=== PATIENT | female | born 1945 | race Caucasian/White ===

== ENCOUNTER 2016-08-12 14:58 | Emergency (ER) | payer MEDICARE, BC ==
[~2016-08-12] VITALS: Ht 152.4 cm; Wt 77.3 kg
[~2016-08-12 14:58] MED LIST: CARV6.25 PO; DULO60CA25 PO; ENOX40DI SQ; FOLI1TAB15 PO; FOLI1TAB47 PO; FURO20TA4 PO; INFL100V IV; INSU100V8 SQ; LOSA25TA34 PO; METF-206 PO; METH2.5T33 PO; OMEP-29 PO; OXYC-541 PO; SENN-152 PO
[2016-08-12 15:00] VITALS: Ht 152.4 cm; Wt 77.3 kg
--- OUTSIDE RECORDS SUMMARY | 2016-08-12 15:05 | XMS REPORT | Summary of Care ---
Author Author Steve East, [place] Organization Unknown Address [address], [place] [id number] Phone Unavailable Care Team Providers Care Production Machine Shop Supervisor Name Role Phone [place] Wilson M.D. 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 [place] Wilson M.D.* Started 06-Apr-2011 ActiveOmeprazole 20 MG Oral Tablet Delayed Release TAKE 2 TABLET Daily * Refills: 0 [place] Wilson M.D.* Started 06-Apr-2011 ActiveCymbalta 30 MG Oral Capsule Delayed Release Particles TAKE 3 CAPSULES DAILY * Refills: 0 [place] Wilson M.D.* Started 06-Apr-2011 ActiveHydrocodone-Acetaminophen 7.5-500 MG TABS TAKE 1 TABLET EVERY 6 HOURS NEEDED FOR PAIN. * Refills: 0 [place] Wilson M.D.* Started 06-Apr-2011 ActiveMethotrexate 2.5 MG Oral Tablet TAKE 3 TABLETS WEEKLY. * Quantity: 15 Refills: 2 [place] Wilson M.D.* Started 11-May-2011 ActiveSodium Polystyrene Sulfonate 15 GM/60ML Oral Suspension Take 15 gm BID today, 6 hours apart * Quantity: 120 Refills: 0 [place] Wilson M.D.* Started 22-May-2013 ActiveFurosemide 20 MG Oral Tablet TAKE 1 TABLET Every morning * Refills: 0 Chester Wilson M.D.* Started 28-Nov-2013 ActiveCarvedilol 3.125 MG Oral Tablet TAKE 1 TABLET TWICE DAILY WITH MEALS. * Refills: 0 Chester Wilson M.D.* Started 28-Nov-2013 ActiveLantus SoloStar 100 UNIT/ML Subcutaneous Solution Pen-injector INJECT SUBCUTANEOUSLY DIRECTED. * Refills: 0 * Started 06-May-2014 ActiveLosartan Potassium 50 MG Oral Tablet Take half a tablet daily. * Refills: 0 * Started 01-Jun-2015 Active Allergies and Adverse Reactions Name Dates Details Morphine Derivatives Status: Active Versed SOLN Status: Active Past Medical History Name Dates Details History of rheumatoid arthritis (V13.4, Z87.39) Status: Resolved Procedures Procedure Dates Details History of Knee Surgery Procedures not documented Immunization Name Dates Details Immunizations not documented Social History Name Dates Details Smoking Status* Former smoker Vital Signs Date Test Result Details 03-Jun-2015 16:31 BP Systolic 164 mm[Hg] Status: BP Diastolic 86 mm[Hg] Status: Weight 178 lb Status: Body Mass Index Calculated 33.63 kg/m2 Status: Body Surface Area Calculated 1.8 m2 Status: 01-Jun-2015 16:01 BP Systolic 138 mm[Hg] Status: BP Diastolic 68 mm[Hg] Status: Weight 178 lb Status: Body Mass Index Calculated 33.63 kg/m2 Status: Body Surface Area Calculated 1.8 m2 Status: Results Date Description Value Details 03-Jun-2015 14:12 CBC w/ Auto Diff 7150 WBC 7.9 K/uL (Better) Range: 4.5-11.0 RBC 4.06 mil/uL (Better) Range: 3.60-5.00 HGB 12.5 g/dL (Better) Range: 12.0-16.0 HCT 39.0 % (Better) Range: 36.0-48.0 MCV 96.0 fL (Better) Range: 80.0-99.0 MCH 30.9 pg (Better) Range: 27.3-32.5 MCHC 32.2 % (Better) Range: 32.0-36.0 RDW 15.3 % (Above high threshold) Range: 11.6-14.8 PLATELETS 187 K/uL (Better) Range: 150-400 MPV 8.2 fL (Better) Range: 6.0-11.0 %NEUTRO 63.0 % (Better) Range: 37.0-80.0 %LYMPHS 26.1 % (Better) Range: 13.0-50.0 %MONO 4.6 % (Better) Range: 0.0-12.0 %EOS 3.9 % (Better) Range: 0.0-7.0 %BASO 0.6 % (Better) Range: 0.0-2.5 %GUILLAUME 1.8 % (Better) Range: 0.0-5.0 NEUTRO 5.0 K/uL (Better) Range: 2.0-6.9 LYMPHS 2.1 K/uL (Better) Range: 0.6-3.4 MONOS 0.4 K/uL (Better) Range: 0.0-0.9 EOS 0.3 K/uL (Better) Range: 0.0-0.7 BASO 0.1 K/uL (Better) Range: 0.0-0.2 14:29 Comprehensive Metabolic Panel 1212 SODIUM 135 mmol/L (Better) Range: 133-144 POTASSIUM 4.5 mmol/L (Better) Range: 3.5-5.1 CHLORIDE 99 mmol/L (Better) Range: 98-110 CARBON DIOXIDE 25.7 mmol/L (Better) Range: 23.0-33.0 ANION GAP 10 mmol/L (Better) Range: 6-16 BUN 42 mg/dL (Above high threshold) Range: 7-18 CREATININE, SERUM 1.65 mg/dL (Above high threshold) Range: 0.55-1.02 Comments: Please note new reference ranges effective 2014.----- BUN:CREATININE RATIO 25 (Better) EST GFR, 37 ml/min (Below low threshold) Range: >60 EST GFR, NON-AFR YEMENI 31 ml/min (Below low threshold) Range: >60 Comments: EST GFR is reported in ml/min per 1.73 m2 of body surface area. For -Montserratian, please multiple result by 1.2.----- GLUCOSE 197 mg/dL (Above high threshold) Range: 70-100 ALK PHOSPHATASE 120 U/L (Above high threshold) Range: 46-116 TOTAL BILIRUBIN 0.30 mg/dL (Better) Range: 0.20-1.00 AST 15 U/L (Better) Range: 8-35 ALT 15 U/L (Better) Range: 14-59 Comments: Please note new reference ranges. Effective 06/18/2014.----- ALBUMIN 3.4 g/dL (Better) Range: 3.4-5.0 TOTAL PROTEIN 7.6 g/dL (Better) Range: 6.4-8.2 A/G RATIO 0.8 units (Below low threshold) Range: 1.0-1.8 CALCIUM 8.4 mg/dL (Below low threshold) Range: 8.5-10.1 14:40 ERYTHROCYTE SED RATE 7800 ERYTHROCYTE SED RATE 44 mm/60 min. (Above high threshold) Range: 0-20 Plan of Care Planned Observations* Name Dates Details Planned Goals not documented Goal Instructions * Instructions not documented Encounters Appointment; Chester Wilson Encounter Diagnosis: Problem not documented On 03-Jun-2015 16:00 Appointment; [place] Wilson Encounter Diagnosis: Problem not documented On 01-Jun-2015 15:45 Appointment; Chester Wilson Encounter Diagnosis: Problem not documented On 01-Mar-2015 16:15 Appointment; Chester Wilson Encounter Diagnosis: Problem not documented On 04-Jan-2015 16:00 Appointment; Chester Wilson Encounter Diagnosis: Problem not documented On 09-Nov-2014 16:00 Appointment; Chester Wilson Encounter Diagnosis: Problem not documented On 16:00 Appointment; Chester Wilson Encounter Diagnosis: Problem not documented On 09-Jul-2014 14:00 Appointment; Chester Wilson Encounter Diagnosis: Problem not documented On 06-May-2014 14:15 Appointment; Chester Wilson Encounter Diagnosis: Problem not documented On 11-Mar-2014 14:00 Appointment; Chester Wilson Encounter Diagnosis: Problem not documented On 15-Jan-2014 14:00 Appointment; Chester Wilson Encounter Diagnosis: Problem not documented On 21-Nov-2013 14:00 Appointment; Chester Wilson Encounter Diagnosis: Problem not documented On 14:00 Appointment; Chester Wilson Encounter Diagnosis: Problem not documented On 17-Jul-2013 15:15
--- OUTSIDE RECORDS SUMMARY | 2016-08-12 15:05 | XMS REPORT | Summary of Care ---
Author Author Steve East, [place] Organization Unknown Address Unknown Phone Unavailable Care Team Providers Care Director Of Quality Name Role Phone [place] Wilson M.D. 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 [place] Wilson M.D. * Start 06-Apr-2011 Active Omeprazole 20 MG Oral Tablet Delayed Release TAKE 2 TABLET Daily * Refills: 0 Steve Abdulkadir., [place] * Start 06-Apr-2011 Active Cymbalta 30 MG Oral Capsule Delayed Release Particles TAKE 3 CAPSULES DAILY * Refills: 0 Steve Kita, [place] * Start 06-Apr-2011 Active Hydrocodone-Acetaminophen 7.5-500 MG TABS TAKE 1 TABLET EVERY 6 HOURS NEEDED FOR PAIN. * Refills: 0 Steve Kita, [place] * Start 06-Apr-2011 Active Methotrexate 2.5 MG Oral Tablet TAKE 3 TABLETS WEEKLY. * Quantity: 15 Refills: 2 Steve Panchal., [place] * Start 11-May-2011 Active Sodium Polystyrene Sulfonate 15 GM/60ML Oral Suspension Take 15 gm BID today, 6 hours apart * Quantity: 120 Refills: 0 Steve Radha.[place]., [place] * Start 22-May-2013 Active Furosemide 20 MG Oral Tablet TAKE 1 TABLET Every morning * Refills: 0 Steve M.[place]., [place] * Start 28-Nov-2013 Active Carvedilol 6.25 MG Oral Tablet * Refills: 0 Steve M.[place]., [place] * Start 28-Nov-2013 Active Lantus SoloStar 100 UNIT/ML Subcutaneous Solution Pen-injector INJECT SUBCUTANEOUSLY DIRECTED. * Refills: 0 * Start 06-May-2014 Active Losartan Potassium 50 MG Oral Tablet Take half a tablet daily. * Refills: 0 * Start 01-Jun-2015 Active Allergies and Adverse Reactions Name Dates Details Morphine Derivatives (Allergy) Status: Active Versed SOLN (Allergy) Status: Active Past Medical History Name Dates Details History of History of knee replacement, total, bilateral (V43.65, Z96.653) Status: Resolved History of rheumatoid arthritis (V13.4, Z87.39) Status: Resolved Procedures Procedure Dates Details History of Knee Surgery Procedures not documented Immunization Name Dates Details Immunizations not documented Social History Name Dates Details - Status: Name Dates Details Former smoker Vital Signs Date Test Result Details 29-Feb-2016 16:05 BP Systolic 150 mm[Hg] Status: Comments: Location: ; Position: BP Diastolic 98 mm[Hg] Status: Comments: Location: ; Position: Weight 176 lb Status: Body Mass Index Calculated 33.26 kg/m2 Status: Body Surface Area Calculated 1.79 m2 Status: Results Date Description Value Details 29-Feb-2016 13:21 CBC w/ Auto Diff 7150 WBC 6.1 K/uL Range: 4.5-11.0 RBC 3.85 mil/uL Range: 3.60-5.00 HGB 11.9 g/dL (Below low threshold) Range: 12.0-16.0 HCT 34.6 % (Below low threshold) Range: 36.0-48.0 MCV 89.7 fL Range: 80.0-99.0 MCH 30.8 pg Range: 27.3-32.5 MCHC 34.3 % Range: 32.0-36.0 RDW 14.0 % Range: 11.6-14.8 PLATELETS 170 K/uL Range: 150-400 MPV 8.5 fL Range: 6.0-11.0 %NEUTRO 58.6 % Range: 37.0-80.0 %LYMPHS 33.7 % Range: 13.0-50.0 %MONO 1.5 % Range: 0.0-12.0 %EOS 4.0 % Range: 0.0-7.0 %BASO 0.6 % Range: 0.0-2.5 %GUILLAUME 1.5 % Range: 0.0-5.0 NEUTRO 3.6 K/uL Range: 2.0-6.9 LYMPHS 2.1 K/uL Range: 0.6-3.4 MONOS 0.1 K/uL Range: 0.0-0.9 EOS 0.3 K/uL Range: 0.0-0.7 BASO 0.0 K/uL Range: 0.0-0.2 13:43 Comprehensive Metabolic Panel 1212 SODIUM 139 mmol/L Range: 133-144 POTASSIUM 4.8 mmol/L Range: 3.5-5.1 CHLORIDE 102 mmol/L Range: 98-110 CARBON DIOXIDE 23.3 mmol/L Range: 23.0-33.0 ANION GAP 14 mmol/L Range: 6-16 BUN 35 mg/dL (Above high threshold) Range: 7-18 CREATININE, SERUM 2.23 mg/dL (Above high threshold) Range: 0.55-1.02 BUN:CREATININE RATIO 16 EST GFR, 26 ml/min (Below low threshold) Range: >60 EST GFR, NON-AFR TANZANIAN 22 ml/min (Below low threshold) Range: >60 Comments: EST GFR is reported in ml/min per 1.73 m2 of body surface area. ----- GLUCOSE 107 mg/dL (Above high threshold) Range: 70-100 ALK PHOSPHATASE 93 U/L Range: 46-116 TOTAL BILIRUBIN 0.40 mg/dL Range: 0.20-1.00 AST 14 U/L Range: 8-35 ALT 19 U/L Range: 14-59 ALBUMIN 3.4 g/dL Range: 3.4-5.0 TOTAL PROTEIN 7.5 g/dL Range: 6.4-8.2 A/G RATIO 0.8 units (Below low threshold) Range: 1.0-1.8 CALCIUM 8.1 mg/dL (Below low threshold) Range: 8.5-10.1 13:50 ERYTHROCYTE SED RATE 7800 ERYTHROCYTE SED RATE 29 mm/60 min. (Above high threshold) Range: 0-20 Plan of Care Name Dates Details Planned Observations Planned Goals not documented Planned Encounters Appointment; Provider: [place] Wilson M.D. On 25-Apr-2016 16:00 Interventions Provided Labs/Procedures/Imaging* CBC w/ Auto Diff 7150; Done: Feb 29 2016 12:55PM * Comprehensive Metabolic Panel 1212; Done: Feb 29 2016 12:55PM * ERYTHROCYTE SED RATE 7800; Done: Feb 29 2016 12:55PM Instructions Name Dates Details Instructions not documented Encounters Appointment; Chester Wilson M.D. Encounter Diagnosis: Problem not documented On 04-Jan-2016 16:00 Appointment; [place] Wilson M.D. Encounter Diagnosis: Problem not documented On 09-Nov-2015 15:45 Appointment; [place] Wilson M.D. Encounter Diagnosis: Problem not documented On 12:30 Appointment; [place] Wilson M.D. Encounter Diagnosis: Problem not documented On 01-Jul-2015 16:15 Appointment; [place] Wilson M.D. Encounter Diagnosis: Problem not documented On 03-Jun-2015 16:00 Appointment; [place] Wilson M.D. Encounter Diagnosis: Problem not documented On 01-Jun-2015 15:45 Appointment; [place] Wilson M.D. Encounter Diagnosis: Problem not documented On 01-Mar-2015 16:15 Appointment; [place] Wilson M.D. Encounter Diagnosis: Problem not documented On 04-Jan-2015 16:00 Appointment; [place] Wilson M.D. Encounter Diagnosis: Problem not documented On 09-Nov-2014 16:00 Appointment; [place] Wilson M.D. Encounter Diagnosis: Problem not documented On 16:00 Appointment; [place] Wilson M.D. Encounter Diagnosis: Problem not documented On 09-Jul-2014 14:00 Appointment; Chester Wilson M.D. Encounter Diagnosis: Problem not documented On 06-May-2014 14:15 Appointment; [place] Wilson M.D. Encounter Diagnosis: Problem not documented On 11-Mar-2014 14:00
--- OUTSIDE RECORDS SUMMARY | 2016-08-12 15:05 | XMS REPORT | Summary of Care ---
Author Author Steve East, [place] Organization Unknown Address [address], [place] [id number] Phone Unavailable Care Team Providers Care Heel Coverer Name Role Phone [place] Wilson M.D. Unavailable Unavailable Wedel, L PP Unavailable Unavailable Unavailable Functional Status Functional Status Health Issues* Name Dates Details Functional status health issues are not documented Status: Cognitive Status Health Issues* Name Dates Details Cognitive status health issues are not documented Status: Problems Name Dates Details Polyarthritis (716.50, M13.0) Status: Active Hyperkalemia (276.7, E87.5) Status: Active Acute sinusitis (461.9, J01.90) Status: Active Hypercholesterolemia (272.0, E78.0) Status: Active Rheu arthritis w rheu factor of [facility] site w/o org/sys involv (714.0, M05.70) Status: Active High risk medication use (V58.69, Z79.899) Status: Active Type 2 diabetes mellitus (250.00, E11.9) Status: Active Hypertension (401.9, I10) Status: Active Renal insufficiency (593.9, N28.9) Status: Active Obesity (278.00, E66.9) Status: Active Anemia (285.9, D64.9) Status: Active Medications Name Dates Details MetFORMIN [...] Procedure Dates Details History of Knee Surgery ERYTHROCYTE SED RATE 7800 Ordered:01-Jun-2015 Comprehensive Metabolic Panel 1212 Ordered:01-Jun-2015 CBC w/ Auto Diff 7150 Ordered:01-Jun-2015 Immunization Name Dates Details Immunizations not documented Social History Name Dates Details Smoking Status* Former smoker Vital Signs Date Test Result Details 01-Jun-2015 16:01 BP Systolic 138 mm[Hg] Status: BP Diastolic 68 mm[Hg] Status: Weight 178 lb Status: Body Mass Index Calculated 33.63 kg/m2 Status: Body Surface Area Calculated 1.8 m2 Status: Results Date Description Value Details Results not documented Plan of Care Planned Observations* Name Dates Details Planned Goals not documented Goal Planned Encounters* Appointment; Provider: Chester Wilson On 01-Jul-2015 16:15 * Appointment; Provider: Chester Wilson On 03-Jun-2015 16:00 Instructions * Instructions not documented Encounters Appointment; [...]
--- OUTSIDE RECORDS SUMMARY | 2016-08-12 15:05 | XMS REPORT | Summary of Care ---
Author Author Steve East, [place] Organization Unknown Address [address] [place], [place] [id number] Phone Unavailable Care Team Providers Care Presser First Name Role Phone Chester Wilson M.D. 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 organ or systems involvement (714.0, M05.79) Status: Active Infliximab (Remicade) long-term use (V58.69, Z79.899) Status: Active Type 2 diabetes mellitus (250.00, E11.9) Status: Active Hypertension (401.9, I10) Status: Active Medications Name Dates Details MetFORMIN [...] Procedure Dates Details History of Knee Surgery Comprehensive Metabolic Panel 1212 Ordered:01-Jul-2015 ERYTHROCYTE SED RATE 7800 Ordered:01-Jul-2015 Immunization Name Dates Details Immunizations not documented [...] low threshold) Range: >60 EST GFR, NON-AFR KOSOVAN 31 ml/min (Below low threshold) Range: >60 Comments: EST GFR is reported in ml/min per 1.73 m2 of body surface area. For -Ivorian, please multiple result by 1.2.----- GLUCOSE 197 [...] mm/60 min. (Above high threshold) Range: 0-20 01-Jul-2015 13:37 CBC w/ Auto Diff 7150 WBC 6.6 K/uL (Better) Range: 4.5-11.0 RBC 4.00 mil/uL (Better) Range: 3.60-5.00 HGB 12.6 g/dL (Better) Range: 12.0-16.0 HCT 38.3 % (Better) Range: 36.0-48.0 MCV 95.6 fL (Better) Range: 80.0-99.0 MCH 31.5 pg (Better) Range: 27.3-32.5 MCHC 33.0 % (Better) Range: 32.0-36.0 RDW 14.1 % (Better) Range: 11.6-14.8 PLATELETS 212 K/uL (Better) Range: 150-400 MPV 9.2 fL (Better) Range: 6.0-11.0 %NEUTRO 50.5 % (Better) Range: 37.0-80.0 %LYMPHS 36.6 % (Better) Range: 13.0-50.0 %MONO 4.9 % (Better) Range: 0.0-12.0 %EOS 4.3 % (Better) Range: 0.0-7.0 %BASO 0.9 % (Better) Range: 0.0-2.5 %GUILLAUME 2.8 % (Better) Range: 0.0-5.0 NEUTRO 3.3 K/uL (Better) Range: 2.0-6.9 LYMPHS 2.4 K/uL (Better) Range: 0.6-3.4 MONOS 0.3 K/uL (Better) Range: 0.0-0.9 EOS 0.3 K/uL (Better) Range: 0.0-0.7 BASO 0.1 K/uL (Better) Range: 0.0-0.2 Plan of Care Planned Observations* Name Dates Details Planned Goals not documented Goal Planned Encounters* Appointment; Provider: Chester Wilson On 26-Aug-2015 16:00 * Appointment; Provider: Chester Wilson On 01-Jul-2015 16:15 Instructions * Instructions not documented Encounters Appointment; Chester Wilson Diagnosis: Problem not documented On 03-Jun-2015 16:00 Appointment; Chester Wilson Encounter Diagnosis: Problem not documented On 01-Jun-2015 15:45 Appointment; Chester Wilson Diagnosis: Problem not documented On 01-Mar-2015 16:15 Appointment; Chester Wilson Encounter Diagnosis: Problem not documented On 04-Jan-2015 16:00 Appointment; Chester Wilson Encounter Diagnosis: Problem not documented On 09-Nov-2014 16:00 Appointment; Chester Wilson Diagnosis: Problem not documented On 16:00 Appointment; Chester Wilson Diagnosis: Problem not documented On 09-Jul-2014 14:00 Appointment; Chester Wilson Diagnosis: Problem not documented On 06-May-2014 14:15 Appointment; Chester Wilson Encounter Diagnosis: Problem not documented On 11-Mar-2014 14:00 Appointment; Steve, [place] Encounter Diagnosis: Problem not documented On 15-Jan-2014 14:00 Appointment; Chester Wilson Encounter Diagnosis: Problem not documented On 21-Nov-2013 14:00 Appointment; Chester Wilson Encounter Diagnosis: Problem not documented On 14:00 Appointment; Chester Wilson Encounter Diagnosis: Problem not documented On 17-Jul-2013 15:15
--- OUTSIDE RECORDS SUMMARY | 2016-08-12 15:05 | XMS REPORT | Summary of Care ---
Author Author Steve East, [place] Organization Unknown Address [address] [place], [place] [id number] Phone Unavailable Care Team Providers Care Drivers License Examiner Name Role Phone [place] Wilson M.D. Unavailable [...] smoker Vital Signs Date Test Result Details 12:36 BP Systolic 142 mm[Hg] Status: BP Diastolic 90 mm[Hg] Status: Weight 173 lb Status: Body Mass Index Calculated 32.69 kg/m2 Status: Body Surface Area Calculated 1.78 m2 Status: Results Date Description Value Details 13:37 CBC w/ Auto Diff 7150 WBC 6.2 K/uL (Better) Range: 4.5-11.0 RBC 4.21 mil/uL (Better) Range: 3.60-5.00 HGB 12.5 g/dL (Better) Range: 12.0-16.0 HCT 39.2 % (Better) Range: 36.0-48.0 MCV 93.1 fL (Better) Range: 80.0-99.0 MCH 29.6 pg (Better) Range: 27.3-32.5 MCHC 31.8 % (Below low threshold) Range: 32.0-36.0 RDW 12.4 % (Better) Range: 11.6-14.8 PLATELETS 197 K/uL (Better) Range: 150-400 MPV 9.6 fL (Better) Range: 6.0-11.0 %NEUTRO 55.2 % (Better) Range: 37.0-80.0 %LYMPHS 30.7 % (Better) Range: 13.0-50.0 %MONO 4.7 % (Better) Range: 0.0-12.0 %EOS 6.5 % (Better) Range: 0.0-7.0 %BASO 0.6 % (Better) Range: 0.0-2.5 %GUILLAUME 2.4 % (Better) Range: 0.0-5.0 NEUTRO 3.4 K/uL (Better) Range: 2.0-6.9 LYMPHS 1.9 K/uL (Better) Range: 0.6-3.4 MONOS 0.3 K/uL (Better) Range: 0.0-0.9 EOS 0.4 K/uL (Better) Range: 0.0-0.7 BASO 0.0 K/uL (Better) Range: 0.0-0.2 14:05 Comprehensive Metabolic Panel 1212 SODIUM 137 mmol/L (Better) Range: 133-144 POTASSIUM 4.6 mmol/L (Better) Range: 3.5-5.1 CHLORIDE 101 mmol/L (Better) Range: 98-110 CARBON DIOXIDE 27.6 mmol/L (Better) Range: 23.0-33.0 ANION GAP 8 mmol/L (Better) Range: 6-16 BUN 21 mg/dL (Above high threshold) Range: 7-18 CREATININE, SERUM 1.97 mg/dL (Above high threshold) Range: 0.55-1.02 Comments: Please note new reference ranges effective 2014.----- BUN:CREATININE RATIO 11 (Better) EST GFR, 30 ml/min (Below low threshold) Range: >60 EST GFR, NON-AFR LIBERIAN 25 ml/min (Below low threshold) Range: >60 Comments: EST GFR is reported in ml/min per 1.73 m2 of body surface area. For -Guinean, please multiple result by 1.2.----- GLUCOSE 279 mg/dL (Above high threshold) Range: 70-100 ALK PHOSPHATASE 110 U/L (Better) Range: 46-116 TOTAL BILIRUBIN 0.30 mg/dL (Better) Range: 0.20-1.00 AST 10 U/L (Better) Range: 8-35 ALT 16 U/L (Better) Range: 14-59 Comments: Please note new reference ranges. Effective 06/18/2014.----- ALBUMIN 3.3 g/dL (Below low threshold) Range: 3.4-5.0 TOTAL PROTEIN 7.5 g/dL (Better) Range: 6.4-8.2 A/G RATIO 0.8 units (Below low threshold) Range: 1.0-1.8 CALCIUM 8.1 mg/dL (Below low threshold) Range: 8.5-10.1 14:06 ERYTHROCYTE SED RATE 7800 ERYTHROCYTE SED RATE 28 mm/60 min. (Above high threshold) Range: 0-20 Plan of Care Planned Observations* Name Dates Details Planned Goals not documented Goal Planned Encounters* Appointment; Provider: Chester Wilson On 09-Nov-2015 15:45 Instructions * Instructions not documented Encounters Appointment; Chester Wilson Diagnosis: Problem not documented On 12:30 Appointment; Chester Wilson Encounter Diagnosis: Problem not documented On 01-Jul-2015 16:15 Appointment; Chester Wilson Encounter Diagnosis: Problem [...]
--- OUTSIDE RECORDS SUMMARY | 2016-08-12 15:06 | XMS REPORT | Summary of Care ---
Author Author Steve East, [place] Organization Unknown Address Unknown Phone Unavailable Care Team Providers Care Motors Assembler Name Role Phone [place] Wilson M.D. Unavailable [...] apart * Quantity: 120 Refills: 0 Steve Panchal., [place] * Start 22-May-2013 Active Furosemide 20 MG Oral Tablet TAKE 1 TABLET Every morning * Refills: 0 Steve East, [place] * Start 28-Nov-2013 Active Carvedilol 3.125 MG Oral Tablet TAKE 1 TABLET TWICE DAILY WITH MEALS. * Refills: 0 Steve Panchal., [place] * Start 28-Nov-2013 Active Lantus SoloStar [...] of Knee Surgery Comprehensive Metabolic Panel 1212 Ordered: 29-Feb-2016 ERYTHROCYTE SED RATE 7800 Ordered: 29-Feb-2016 Immunization Name Dates Details Immunizations not documented Social History Name Dates Details - Status: Name Dates Details Former smoker Vital Signs Date Test Result Details No Known Vitals to report Results Date Description Value Details 29-Feb-2016 13:21 [...] Range: 0.0-0.7 BASO 0.0 K/uL Range: 0.0-0.2 Plan of Care Name Dates Details Planned Observations Planned Goals not documented Planned Encounters Appointment; Provider: [place] Wilson M.D. On 25-Apr-2016 16:00 Appointment; Provider: [place] Wilson M.D. On 29-Feb-2016 16:00 Interventions Provided Labs/Procedures/Imaging* Comprehensive Metabolic Panel 1212; To be Done: 29 Feb 2016 * ERYTHROCYTE SED RATE 7800; To be Done: 29 Feb 2016 * CBC w/ Auto Diff 7150; Done: Feb 29 2016 12:55PM Instructions Name [...]
--- OUTSIDE RECORDS SUMMARY | 2016-08-12 15:06 | XMS REPORT | Summary of Care ---
Author Author Steve East, [place] Organization Unknown Address Unknown Phone Unavailable Care Team Providers Care Adjuster Leader Name Role Phone [place] Wilson M.D. 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, M05.79) Status: Active On methotrexate therapy (V58.69, Z79.899) Status: Active Hypertension (401.9, I10) Status: Active Type 2 diabetes mellitus (250.00, E11.9) Status: Active Renal insufficiency (593.9, N28.9) Status: Active Medications Name Dates Details MetFORMIN [...] apart * Quantity: 120 Refills: 0 Steve M.D., [place] * Start 22-May-2013 Active Furosemide 20 MG Oral Tablet TAKE 1 TABLET Every morning * Refills: 0 Steve M.[place]., [place] * Start 28-Nov-2013 Active Carvedilol 6.25 MG Oral Tablet * Refills: 0 Steve M.D., [place] * Start 28-Nov-2013 Active Lantus SoloStar [...] smoker Vital Signs Date Test Result Details 25-Apr-2016 16:33 BP Systolic 170 mm[Hg] Status: Comments: Location: ; Position: BP Diastolic 82 mm[Hg] Status: Comments: Location: ; Position: Weight 174 lb Status: Body Mass Index Calculated 32.88 kg/m2 Status: Body Surface Area Calculated 1.78 m2 Status: Results Date Description Value Details 25-Apr-2016 13:49 CBC w/ Auto Diff 7150 WBC 6.8 K/uL Range: 4.5-11.0 RBC 3.58 mil/uL (Below low threshold) Range: 3.60-5.00 HGB 11.4 g/dL (Below low threshold) Range: 12.0-16.0 HCT 33.2 % (Below low threshold) Range: 36.0-48.0 MCV 92.5 fL Range: 80.0-99.0 MCH 31.7 pg Range: 27.3-32.5 MCHC 34.2 % Range: 32.0-36.0 RDW 14.5 % Range: 11.6-14.8 PLATELETS 140 K/uL (Below low threshold) Range: 150-400 MPV 9.3 fL Range: 6.0-11.0 %NEUTRO 47.3 % Range: 37.0-80.0 %LYMPHS 40.4 % Range: 13.0-50.0 %MONO 4.6 % Range: 0.0-12.0 %EOS 4.1 % Range: 0.0-7.0 %BASO 0.5 % Range: 0.0-2.5 %GUILLAUME 3.1 % Range: 0.0-5.0 NEUTRO 3.2 K/uL Range: 2.0-6.9 LYMPHS 2.8 K/uL Range: 0.6-3.4 MONOS 0.3 K/uL Range: 0.0-0.9 EOS 0.3 K/uL Range: 0.0-0.7 BASO 0.0 K/uL Range: 0.0-0.2 14:13 Comprehensive Metabolic Panel 1212 SODIUM 136 mmol/L Range: 133-144 POTASSIUM 4.9 mmol/L Range: 3.5-5.1 CHLORIDE 104 mmol/L Range: 98-110 CARBON DIOXIDE 18.7 mmol/L (Below low threshold) Range: 23.0-33.0 ANION GAP 13 mmol/L Range: 6-16 BUN 42 mg/dL (Above high threshold) Range: 7-18 CREATININE, SERUM 2.01 mg/dL (Above high threshold) Range: 0.55-1.02 BUN:CREATININE RATIO 21 EST GFR, 29 ml/min (Below low threshold) Range: >60 EST GFR, NON-AFR [place] 24 ml/min (Below low threshold) Range: >60 Comments: EST GFR is reported in ml/min per 1.73 m2 of body surface area. ----- GLUCOSE 184 mg/dL (Above high threshold) Range: 70-100 ALK PHOSPHATASE 90 U/L Range: 46-116 TOTAL BILIRUBIN 0.30 mg/dL Range: 0.20-1.00 AST 14 U/L Range: 8-35 ALT 12 U/L (Below low threshold) Range: 14-59 ALBUMIN 3.2 g/dL (Below low threshold) Range: 3.4-5.0 TOTAL PROTEIN 7.5 g/dL Range: 6.4-8.2 A/G RATIO 0.7 units (Below low threshold) Range: 1.0-1.8 CALCIUM 7.9 mg/dL (Below low threshold) Range: 8.5-10.1 14:25 ERYTHROCYTE SED RATE 7800 ERYTHROCYTE SED RATE 34 mm/60 min. (Above high threshold) Range: 0-20 Plan of Care Name Dates Details Planned Observations Planned Goals not documented Planned Encounters Appointment; Provider: [place] Wilson M.D. On 20-Jun-2016 16:00 Interventions Provided Labs/Procedures/Imaging* CBC w/ Auto Diff 7150; Done: Apr 25 2016 1:42PM * Comprehensive Metabolic Panel 1212; Done: Apr 25 2016 1:42PM * ERYTHROCYTE SED RATE 7800; Done: Apr 25 2016 1:42PM Instructions Name Dates Details Instructions not documented Encounters Appointment; [place] Wilson M.D. Encounter Diagnosis: Problem not documented On 29-Feb-2016 16:00 Appointment; [place] Wilson M.D. Encounter Diagnosis: [...]
--- OUTSIDE RECORDS SUMMARY | 2016-08-12 15:06 | XMS REPORT | Summary of Care ---
Author Author Steve East, [place] Organization Unknown Address [address], [place] [id number] Phone Unavailable Care Team Providers Care Building Equipment Operator Name Role Phone [place] Wilson M.D. Unavailable [...] smoker Vital Signs Date Test Result Details 01-Jul-2015 16:12 BP Systolic 154 mm[Hg] Status: BP Diastolic 82 mm[Hg] Status: Weight 178 lb Status: Body Mass Index Calculated 33.63 kg/m2 Status: Body Surface Area Calculated 1.8 m2 Status: 03-Jun-2015 16:31 BP Systolic 164 mm[Hg] Status: [...] low threshold) Range: >60 EST GFR, NON-AFR [place] 31 ml/min (Below low threshold) Range: >60 Comments: EST GFR is reported in ml/min per 1.73 m2 of body surface area. For -Japanese, please multiple result by 1.2.----- GLUCOSE 197 [...] 0.0-0.7 BASO 0.1 K/uL (Better) Range: 0.0-0.2 14:03 Comprehensive Metabolic Panel 1212 SODIUM 137 mmol/L (Better) Range: 133-144 POTASSIUM 3.9 mmol/L (Better) Range: 3.5-5.1 CHLORIDE 101 mmol/L (Better) Range: 98-110 CARBON DIOXIDE 23.1 mmol/L (Better) Range: 23.0-33.0 ANION GAP 13 mmol/L (Better) Range: 6-16 BUN 27 mg/dL (Above high threshold) Range: 7-18 CREATININE, SERUM 1.62 mg/dL (Above high threshold) Range: 0.55-1.02 Comments: Please note new reference ranges effective 2014.----- BUN:CREATININE RATIO 17 (Better) EST GFR, 38 ml/min (Below low threshold) Range: >60 EST GFR, NON-AFR [place] 31 ml/min (Below low threshold) Range: >60 Comments: EST GFR is reported in ml/min per 1.73 m2 of body surface area. For -Japanese, please multiple result by 1.2.----- GLUCOSE 143 mg/dL (Above high threshold) Range: 70-100 ALK PHOSPHATASE 112 U/L (Better) Range: 46-116 TOTAL BILIRUBIN 0.50 mg/dL (Better) Range: 0.20-1.00 AST 13 U/L (Better) Range: 8-35 ALT 13 U/L (Below low threshold) Range: 14-59 Comments: Please note new reference ranges. Effective 06/18/2014.----- ALBUMIN 3.4 g/dL (Better) Range: 3.4-5.0 TOTAL PROTEIN 7.6 g/dL (Better) Range: 6.4-8.2 A/G RATIO 0.8 units (Below low threshold) Range: 1.0-1.8 CALCIUM 8.4 mg/dL (Below low threshold) Range: 8.5-10.1 14:07 ERYTHROCYTE SED RATE 7800 ERYTHROCYTE SED RATE 22 mm/60 min. (Above high threshold) Range: 0-20 Plan of Care Planned Observations* Name Dates Details Planned Goals not documented Goal Planned Encounters* Appointment; Provider: [place] Wilson On 26-Aug-2015 16:00 Instructions * Instructions not documented Encounters [...]
--- OUTSIDE RECORDS SUMMARY | 2016-08-12 15:06 | XMS REPORT | Summary of Care ---
Author Author Steve East, [place] Organization Unknown Address Unknown Phone Unavailable Care Team Providers Care Bench Worker Apprentice Name Role Phone [place] Wilson M.D. 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 [place] Wilson M.D. * Start 06-Apr-2011 Active Omeprazole 20 MG Oral Tablet Delayed Release TAKE 2 TABLET Daily * Refills: 0 Steev Radha.[place]., [place] * Start 06-Apr-2011 Active Cymbalta 30 MG Oral Capsule Delayed Release Particles TAKE 3 CAPSULES DAILY * Refills: 0 Steve Abdulkadir., [place] * Start 06-Apr-2011 Active Hydrocodone-Acetaminophen 7.5-500 [...] apart * Quantity: 120 Refills: 0 Steve Garcia.[place]., [place] * Start 22-May-2013 Active Furosemide 20 MG Oral Tablet TAKE 1 TABLET Every morning * Refills: 0 Steve Panchal., [place] * Start 28-Nov-2013 Active Carvedilol 3.125 [...] smoker Vital Signs Date Test Result Details 09-Nov-2015 16:27 BP Systolic 128 mm[Hg] Status: Comments: Location: ; Position: BP Diastolic 68 mm[Hg] Status: Comments: Location: ; Position: Weight 176 lb Status: Body Mass Index Calculated 33.26 kg/m2 Status: Body Surface Area Calculated 1.79 m2 Status: Results Date Description Value Details 09-Nov-2015 13:54 CBC w/ Auto Diff 7150 WBC 7.0 K/uL Range: 4.5-11.0 RBC 4.09 mil/uL Range: 3.60-5.00 HGB 12.4 g/dL Range: 12.0-16.0 HCT 37.4 % Range: 36.0-48.0 MCV 91.6 fL Range: 80.0-99.0 MCH 30.3 pg Range: 27.3-32.5 MCHC 33.1 % Range: 32.0-36.0 RDW 15.7 % (Above high threshold) Range: 11.6-14.8 PLATELETS 224 K/uL Range: 150-400 MPV 8.4 fL Range: 6.0-11.0 %NEUTRO 53.8 % Range: 37.0-80.0 %LYMPHS 32.2 % Range: 13.0-50.0 %MONO 5.6 % Range: 0.0-12.0 %EOS 4.8 % Range: 0.0-7.0 %BASO 0.7 % Range: 0.0-2.5 %GUILLAUME 2.9 % Range: 0.0-5.0 NEUTRO 3.8 K/uL Range: 2.0-6.9 LYMPHS 2.3 K/uL Range: 0.6-3.4 MONOS 0.4 K/uL Range: 0.0-0.9 EOS 0.3 K/uL Range: 0.0-0.7 BASO 0.1 K/uL Range: 0.0-0.2 14:12 Comprehensive Metabolic Panel 1212 SODIUM 137 mmol/L Range: 133-144 POTASSIUM 4.7 mmol/L Range: 3.5-5.1 CHLORIDE 103 mmol/L Range: 98-110 CARBON DIOXIDE 25.2 mmol/L Range: 23.0-33.0 ANION GAP 9 mmol/L Range: 6-16 BUN 27 mg/dL (Above high threshold) Range: 7-18 CREATININE, SERUM 1.78 mg/dL (Above high threshold) Range: 0.55-1.02 Comments: Please note new reference ranges effective 2014.----- BUN:CREATININE RATIO 15 EST GFR, 34 ml/min (Below low threshold) Range: >60 EST GFR, NON-AFR CITIZEN OF [place] 28 ml/min (Below low threshold) Range: >60 Comments: EST GFR is reported in ml/min per 1.73 m2 of body surface area. For -[place], please multiple result by 1.2.----- GLUCOSE 150 mg/dL (Above high threshold) Range: 70-100 ALK PHOSPHATASE 101 U/L Range: 46-116 TOTAL BILIRUBIN 0.50 mg/dL Range: 0.20-1.00 AST 12 U/L Range: 8-35 ALT 7 U/L (Below low threshold) Range: 14-59 Comments: Please note new reference ranges. Effective 06/18/2014.----- ALBUMIN 3.5 g/dL Range: 3.4-5.0 TOTAL PROTEIN 7.5 g/dL Range: 6.4-8.2 A/G RATIO 0.9 units (Below low threshold) Range: 1.0-1.8 CALCIUM 8.5 mg/dL Range: 8.5-10.1 14:20 ERYTHROCYTE SED RATE 7800 ERYTHROCYTE SED RATE 23 mm/60 min. (Above high threshold) Range: 0-20 Plan of Care Name Dates Details Planned Observations Planned Goals not documented Planned Encounters Appointment; Provider: [place] Wilson M.D. On 04-Jan-2016 16:00 Interventions Provided Labs/Procedures/Imaging* CBC w/ Auto Diff 7150; Done: Nov 09 2015 1:15PM * Comprehensive Metabolic Panel 1212; Done: Nov 09 2015 1:15PM * ERYTHROCYTE SED RATE 7800; Done: Nov 09 2015 1:15PM Instructions Name Dates Details Instructions not documented [...] documented On 11-Mar-2014 14:00 Appointment; [place] Wilson M.D. Encounter Diagnosis: Problem not documented On 15-Jan-2014 14:00 Appointment; [place] Wilson M.D. Encounter Diagnosis: Problem not documented On 21-Nov-2013 14:00
--- OUTSIDE RECORDS SUMMARY | 2016-08-12 15:06 | XMS REPORT | Summary of Care ---
Author Author Steve East, [place] Organization Unknown Address [address], [place] [phone] Phone Unavailable Care Team Providers Care Orchard Manager Name Role Phone [place] Wilson M.D. Unavailable [...] Procedure Dates Details History of Knee Surgery CBC w/ Auto Diff 7150 Ordered:01-Jun-2015 Comprehensive Metabolic Panel 1212 Ordered:01-Jun-2015 ERYTHROCYTE SED RATE 7800 Ordered:01-Jun-2015 Immunization Name Dates Details Immunizations not [...] Planned Encounters* Appointment; Provider: [place] Wilson On 03-Jun-2015 16:00 [...]
--- OUTSIDE RECORDS SUMMARY | 2016-08-12 15:07 | XMS REPORT | Summary of Care ---
Author Author Steve East, [place] Organization Unknown Address Unknown Phone Unavailable Care Team Providers Care Musician Instrumental Name Role Phone [place] Wilson M.D. Unavailable [...] 2 TABLET Daily * Refills: 0 Steve Radha.[place]., [place] * Start 06-Apr-2011 Active Cymbalta 30 [...] M.[place]., [place] * Start 28-Nov-2013 Active Carvedilol 3.125 MG Oral Tablet TAKE 1 TABLET TWICE DAILY WITH MEALS. * Refills: 0 Steve Garcia.[place]., [place] * Start 28-Nov-2013 Active Lantus SoloStar [...] smoker Vital Signs Date Test Result Details 04-Jan-2016 16:42 BP Systolic 150 mm[Hg] Status: Comments: Location: ; Position: BP Diastolic 78 mm[Hg] Status: Comments: Location: ; Position: Weight 180 lb Status: Body Mass Index Calculated 34.01 kg/m2 Status: Body Surface Area Calculated 1.81 m2 Status: Results Date Description Value Details 04-Jan-2016 14:35 CBC w/ Auto Diff 7150 WBC 5.4 K/uL Range: 4.5-11.0 RBC 3.61 mil/uL Range: 3.60-5.00 HGB 11.2 g/dL (Below low threshold) Range: 12.0-16.0 HCT 33.3 % (Below low threshold) Range: 36.0-48.0 MCV 92.2 fL Range: 80.0-99.0 MCH 31.1 pg Range: 27.3-32.5 MCHC 33.7 % Range: 32.0-36.0 RDW 15.0 % (Above high threshold) Range: 11.6-14.8 PLATELETS 190 K/uL Range: 150-400 MPV 7.9 fL Range: 6.0-11.0 %NEUTRO 57.0 % Range: 37.0-80.0 %LYMPHS 30.6 % Range: 13.0-50.0 %MONO 5.1 % Range: 0.0-12.0 %EOS 4.0 % Range: 0.0-7.0 %BASO 0.5 % Range: 0.0-2.5 %GUILLAUME 2.8 % Range: 0.0-5.0 NEUTRO 3.1 K/uL Range: 2.0-6.9 LYMPHS 1.7 K/uL Range: 0.6-3.4 MONOS 0.3 K/uL Range: 0.0-0.9 EOS 0.2 K/uL Range: 0.0-0.7 BASO 0.0 K/uL Range: 0.0-0.2 14:59 Comprehensive Metabolic Panel 1212 SODIUM 142 mmol/L Range: 133-144 POTASSIUM 4.5 mmol/L Range: 3.5-5.1 CHLORIDE 105 mmol/L Range: 98-110 CARBON DIOXIDE 24.0 mmol/L Range: 23.0-33.0 ANION GAP 13 mmol/L Range: 6-16 BUN 23 mg/dL (Above high threshold) Range: 7-18 CREATININE, SERUM 1.61 mg/dL (Above high threshold) Range: 0.55-1.02 BUN:CREATININE RATIO 14 EST GFR, 38 ml/min (Below low threshold) Range: >60 EST GFR, NON-AFR [place] 31 ml/min (Below low threshold) Range: >60 Comments: EST GFR is reported in ml/min per 1.73 m2 of body surface area. ----- GLUCOSE 150 mg/dL (Above high threshold) Range: 70-100 ALK PHOSPHATASE 87 U/L Range: 46-116 TOTAL BILIRUBIN 0.40 mg/dL Range: 0.20-1.00 AST 14 U/L Range: 8-35 ALT 15 U/L Range: 14-59 ALBUMIN 3.2 g/dL (Below low threshold) Range: 3.4-5.0 TOTAL PROTEIN 6.8 g/dL Range: 6.4-8.2 A/G RATIO 0.9 units (Below low threshold) Range: 1.0-1.8 CALCIUM 7.9 mg/dL (Below low threshold) Range: 8.5-10.1 15:03 ERYTHROCYTE SED RATE 7800 ERYTHROCYTE SED RATE 31 mm/60 min. (Above high threshold) Range: 0-20 Plan of Care Name Dates Details Planned Observations Planned Goals not documented Planned Encounters Appointment; Provider: [place] Wilson M.D. On 29-Feb-2016 16:00 Interventions Provided Labs/Procedures/Imaging* CBC w/ Auto Diff 7150; Done: Jan 04 2016 1:45PM * Comprehensive Metabolic Panel 1212; Done: Jan 04 2016 1:45PM * ERYTHROCYTE SED RATE 7800; Done: Jan 04 2016 1:45PM Instructions Name Dates Details Instructions not documented [...]
--- OUTSIDE RECORDS SUMMARY | 2016-08-12 15:07 | XMS REPORT ---
Author Author Chester Wilson Organization Unknown Address [address], [place] [phone] Phone Care Team Providers Care Personnel Coordinator Name Role Phone [place] Wilson PP Unavailable Reason for Referral No Reason for Referral was given. History of Present Illness No HPI available. Problems * Rheumatoid Arthritis Last Assessed: 07/24/2012 8:55:24 AM (714.0); ( Active) * Taking High-risk Medication Last Assessed: 07/24/2012 8:55:25 AM (V58.69); (Active) * Anemia Last Assessed: 07/24/2012 8:55:27 AM (285.9); (Active) * Renal Insufficiency Last Assessed: 07/24/2012 8:55:29 AM (593.9); ( Active) * Hypertension Last Assessed: 07/24/2012 8:55:31 AM (401.9); (Active) * Type 2 Diabetes Mellitus Last Assessed: 07/24/2012 8:55:33 AM (250.00); (Active) * Hypercholesterolemia Last Assessed: 07/24/2012 8:55:36 AM (272.0); ( Active) * Normal Routine History And Physical Senior Citizen (65-80) (V70.0); ( Active) * Polyarthritis (716.50); (Active) Medication * MetFORMIN HCl 1000 MG Oral Tablet; TAKE 1 TABLET TWICE DAILY.; Start Date: (Active) * Omeprazole 20 MG Oral Tablet Delayed Release; TAKE 2 TABLET Daily; Start Date : 04/06/2011 (Active) * Lisinopril-Hydrochlorothiazide 20-25 MG Oral Tablet; TAKE 1 TABLET DAILY.; Start Date: 04/06/2011; End Date: (Active) * Cymbalta 60 MG Oral Capsule Delayed Release Particles; TAKE 1 CAPSULE DAILY.; Start Date: 04/06/2011 (Active) * Simvastatin 40 MG Oral Tablet; TAKE 1 TABLET DAILY.; Start Date: 04/06/2011 ( Active) * Hydrocodone-Acetaminophen 7.5-500 MG Oral Tablet; TAKE 1 TABLET EVERY 6 HOURS NEEDED FOR PAIN.; Start Date: 04/06/2011 (Active) * Methotrexate 2.5 MG Oral Tablet; TAKE 3 TABLETS WEEKLY.; Start Date: 2011 (Active) * Folic Acid 1 MG Oral Tablet; TAKE 1 TABLET DAILY.; Start Date: 05/11/2011 ( Active) * NIFEdipine 10 MG Oral Capsule; Take 1 capsule today; Start Date: 05/28/2012; End Date: (Active) Allergies and Adverse Reactions * Versed SOLN (Active) * Morphine Derivatives (Active) Past Medical History * No Significant Medical History Advance Directives * No Advance Directives available. Encounters * Appointment 07/23/2012 * RTNITESHT , Provider: Steve Briggs, Status: Pen , Time: 1:00 PM 02/2013
--- OUTSIDE RECORDS SUMMARY | 2016-08-12 15:07 | XMS REPORT | Summary of Care ---
Author Author Steve East, [place] Organization Unknown Address [address] [place], [place] [id number] Phone Unavailable Care Team Providers Care Habilitation Worker Name Role Phone [place] Wilson M.D. Unavailable [...] Knee Surgery Comprehensive Metabolic Panel 1212 Ordered: ERYTHROCYTE SED RATE 7800 Ordered: Immunization Name Dates Details Immunizations not documented [...] 0.0-0.7 BASO 0.0 K/uL (Better) Range: 0.0-0.2 Plan of Care Planned Observations* Name Dates Details Planned Goals not documented Goal Instructions * Instructions not documented Encounters Appointment; [place] Wilson Encounter Diagnosis: Problem not documented On 12:30 Appointment; [place] Wilson Encounter Diagnosis: Problem not documented On 01-Jul-2015 16:15 Appointment; [place] Wilson Encounter Diagnosis: Problem not documented On 03-Jun-2015 16:00 Appointment; [place] Wilson Diagnosis: Problem not documented On 01-Jun-2015 15:45 [...]
--- NOTE | 2016-08-12 15:39 | ERPDOC ---
Departure Disposition Decision Date: August 12, 2016 Disposition Decision Time: 18:30 Disposition: 01 DISCHARGED HOME, SELF-CARE Impression Impression Impression: Primary Impression: Dehydration Additional Impressions: Syncope Syncope type: unspecified Qualified Codes: R55 - Syncope and collapse Hyperkalemia Renal insufficiency Severity: Moderate Condition: Improved Seen By: Mid-level only Referrals: CYNTHIA GREENBERG MD (Family) Patient Instructions: Dehydration (ED), Syncope (ED) Problems/Meds/Labs Reviewed?: Yes Medications reviewed and manag: Yes Additional Instructions: Your head CT and ribs x-rays did not show any fractures or acute findings. Your labs indicate you are dehydrated which most likely caused you to pass out. Your creatinine is elevated from your previous due to the dehydration. Your potassium is elevated but has improved with fluids. Stay hydrated drink 8 glasses of water daily. Avoid fluids that have caffeine or artificial sweetener because they are dehydrating. Please follow with your PCP Sunday for re-evaluation. You may return to the ED. Follow up care ordered?: Yes Mental Status: Alert, Oriented HPI - Syncope General Chief Complaint: Syncope Stated Complaint: LIGHT HEADED,PASSED OUT Time Seen by Provider: 15:22 Source: patient HPI - Syncope Initial Comments 71-year-old female brought to ED via EMS for syncopal episode. Patient states that she began to feel dizzy and lightheaded and sat down on a park bench while at a car show today. Says that after sitting down she does not remember what happened. She said she woke up on the ground. EMS was activated. Patient states she probably has not been drinking enough fluids today since she was out in the heat. Patient was started on normal saline by EMS and is feeling better at this time after a fluid bolus of 1 L. Patient denies any recent change in her health or sick contacts. Patient is unsure if she struck her head. Patient denies any new pain other than left lateral rib pain. Patient states she aches all over because she has been off of Remicade for approximately 1 month due to upcoming dental surgery. Patient denies fever, chills, chest pain , nausea, diaphoresis, ataxia. Does admit she is out of shape and may have been "a little short of breath" when walking around today. Pain Scale: Now: 5/10 (ribs) Symptoms Prior to Episode: blurred vision, lightheadedness Loss of Consciousness: brief (seconds) Current Symptoms: DENIES: blurred vision, chest pain, diaphoresis, dizziness, headache, lightheadedness, loss of bladder control, loss of bowel control, motionless, nausea, shallow/rapid breathing, weakness Allergies: Coded Allergies: midazolam (Verified Allergy, Severe, QUIT BREATHING, 03/06/15) morphine (Verified Allergy, Unknown, ITCHING, 03/07/15) propofol (Verified Allergy, Unknown, RESPIRATORY DISTRESS, 03/07/15) Past History Patient Surgical History 1. Cataract extractions 2. Resection of a benign tumor from her left foot 3. Excision of a benign vocal cord nodule 4. Hysterectomy/BSO 5. Appendectomy 6. Bilateral TKA's Past Medical History Metabolic: diabetes, hyperthyroidism Cardiac: DENIES: angina Respiratory: DENIES: asthma GI: DENIES: ulcers Female: renal insufficiency Neurological: DENIES: seizures Musculoskeletal: rheumatoid arthritis Psychological: DENIES: depression Surgical History General: appendix Reproductive/: hysterectomy Joint: knee Family History Family PMH: FOUND: other (noncontributory) Vaccines Hx Influenza Vaccination: Yes (DEC 2014) Hx Pneumococcal Vaccination: No Social History Sexuality: male partner Review of Systems Constitutional Constitutional: other (lightheaded), DENIES: chills, fever, weakness Eyes General: DENIES: erythema, exudate Lids/Accessories: DENIES: erythema, swelling Vision: blurring ENMT Ears: DENIES: pain Sinuses: DENIES: congestion, rhinorrhea Mouth/Throat: DENIES: sore throat Cardiovascular Cardiac: DENIES: chest pain, murmur Rhythm/Rate: DENIES: palpitations Pulmonary Respiratory: DENIES: cough, dyspnea GI Upper Abdomen: DENIES: nausea, pain, vomiting Lower Abdomen: DENIES: diarrhea, pain General: DENIES: dysuria, pain Musculoskeletal General: DENIES: joint pain, pain, tenderness Integumentary Skin: DENIES: color change, itching, rash Neurological General: see HPI, syncope, DENIES: ataxia, change in strength, numbness, paralysis/paresis, weakness Psychiatric Psychiatric: DENIES: anxiety, depression, nervousness Physical Exam General General Nourishment: well nourished, well developed, adult General Body Habitus: well groomed Vitals and Pain First Documented Vital Signs Date Time Temp Pulse Resp B/P Pulse Ox O2 Delivery O2 Flow Rate FiO2 5/6/17 15:00 98.2 61 18 121/59 95 Room Air Weight: Kilograms: 77.270 Height (feet): 5 Height (inches): 0 Triage Pain Scale: Eyes (brief) Eyes Brief: found: EOMI, PERRL ENMT (brief) ENMT Brief: FOUND: mucosa moist, NOT FOUND: nasal exudate, nasal swelling Neck (brief) Neck: FOUND: trachea midline Respiratory (brief) Respiratory: FOUND: clear all zayas, equal bilaterally, symmetrical, tenderness (TTP over lateral left ribs 3-5) Cardiovascular (brief) Cardiac: FOUND: regular rate, regular rhythm Abdomen (brief) Abdominal Brief: FOUND: bowel normo active x4, soft, NOT FOUND: tender Musculoskeletal Joint : Side: Bilateral Joint: shoulder, elbow, wrist, hip, knee, ankle Joint Findings: NOT FOUND: ROM limited, deformity, discoloration, instability, pain, swelling Back: NOT FOUND: spasm, spine point tenderness, tenderness Integumentary (brief) Integumentary Brief: FOUND: dry, pink, warm Neurologic (brief) Neurological Brief: FOUND: CN w/o gross def to obs Neurologic Mental Status: FOUND: alert, oriented (x3) Cranial Nerves: NOT FOUND: facial asymmetry Motor : Motor Side: bilateral Motor Location: foot extension, foot flexion, jailer strength Motor Degree: 5 Sensation: FOUND: soft touch intact x4 ext Cerebellar: FOUND: tandem walk DTR's : DTR Side: bilateral DTR Location: Triceps, Patellar Psychiatric (brief) Psychiatric Brief: FOUND: normal affect Differential Diagnoses Differential Diagnoses Considering: Bradycardia, Cardiac Dysrhythmia, Hypoglycemia, Long QT Syndrome, Medication Effect, Orthostatic Hypotension, TIA, UTI Progress Results/Orders Orders Procedure Category Date Status Time EKG EKG 08/12/16 Taken Iv Lock (Ed Only) EDM 08/12/16 Transmitted 15:47 Orthostatic Bp/Pulse EDM 08/12/16 Transmitted 15:47 Nothing By Mouth (Ed EDM 08/12/16 Transmitted Only) 15:47 Bgm (Ed) EDM 08/12/16 Transmitted 15:47 Cbc W/Auto LAB 08/12/16 Complete Diff-Reflex Manual 15:47 Troponin I W LAB 08/12/16 Complete Hemolysis Index 15:47 Ua, Dip Wreflex LAB 08/12/16 Complete Microsc & Manager Clinical Research 15:47 Ct Head W/O Contrast CT 08/12/16 Resulted 15:47 Ribs Left With Ap RAD 08/12/16 Resulted Chest Cmp - Comprehensive LAB 08/12/16 Complete Metabolic K - Potassium W LAB 08/12/16 Complete Hemolysis Ind Normal Saline (Ns) PHA 08/12/16 Complete 18:45 Lab Results Laboratory Tests Test 08/12/16 15:13 08/12/16 15:47 08/12/16 17:00 08/12/16 18:14 White Blood Count 9.3T/MM3 Red Blood Count 3.77M/MM3 Hemoglobin 10.9GM/DL Hematocrit 34.2% Mean Corpuscular Volume 90.7UM3 Mean Corpuscular Hemoglobin 28.9UUG Mean Corpuscular Hemoglobin Concent 31.9GM/DL RDW Standard Deviation 41.3FL Platelet Count 236T/MM3 Mean Platelet Volume 11.6UM3 Immature Granulocyte % (Auto) 0.2% Neutrophils (%) (Auto) 59.1% Lymphocytes (%) (Auto) 30.4% Monocytes (%) (Auto) 5.8% Eosinophils (%) (Auto) 3.9% Basophils (%) (Auto) 0.6% Absolute Immature Granulocyte (auto 0.02T/MM3 Absolute Neutrophils (auto) 5.5T/MM3 Absolute Lymphocytes (auto) 2.8T/MM3 Absolute Monocytes (auto) 0.5T/MM3 Absolute Eosinophils (auto) 0.4T/MM3 Absolute Basophils (auto) 0.1T/MM3 Troponin I < 0.012ng/ml Chemistry Specimen Hemolysis < 15 < 15 < 15 Turbidity < 20 Sodium Level 143MEQ/L Potassium Level 5.5MEQ/L 5.2MEQ/L Chloride Level 107MEQ/L Carbon Dioxide Level 18MEQ/L Anion Gap 18MEQ/L Blood Urea Nitrogen 47.0MG/DL Creatinine 2.5MG/DL Glomerular Filtration Rate Calc 19 BUN/Creatinine Ratio 19RATIO Glucose Level 228MG/DL Calculated Osmolality 294MOSM/KG Calcium Level 9.5MG/DL Total Bilirubin 0.50MG/DL Icterus Index < 2 Aspartate Amino Transf (AST/SGOT) 18U/L Alanine Aminotransferase (ALT/SGPT) 23U/L Alkaline Phosphatase 108U/L Total Protein 8.0G/DL Albumin 4.5G/DL Globulin 3.5G/DL Albumin/Globulin Ratio 1.3RATIO Urine Collection Type Cleancatch-midstream Urine Color Yellow Urine Turbidity Clear Urine pH 5.5 Urine Specific Braymer 1.020 Urine Protein Negative Urine Glucose (UA) Negative Urine Ketones Negative Urine Blood Negative Urine Nitrite Negative Urine Bilirubin Negative Urine Urobilinogen 0.2EU/DL Urine Leukocyte Esterase Negative Urinalysis Comment Microscopic not ind. Medications Current ED Medications Sodium Chloride (NS) 500 ml @ 0 mls/hr Q0M ONCE IV Last administered on t 19:05; Start 08/12/16 at 18:45; Stop 08/12/16 at 18:46; Status DC Progress Progress CBC unremarkable, Hgb stable from previous K 5.5 CO2 18 BUN 47 Creatinine 2.4 Troponin , 0.012 UA unremarkable I discussed patient BUN and creatinine (and other labs) with patient. Patient see Dr. Reyes and June creatinine was 1.9. Patient K, CO2, BUN and creatine consistent with acute dehydration. Patient admits she does not drink much water. Diet coke is her drink of choice. I offered admission for hydration with patient. Patient states she does not want to be admitted, she wants to go home. Repeat K 5.2 trending downward Patient is discharge home improved. Patient verbalized understanding of treatment plan, follow up with PCP and return precautions. EKG EKG : Rate: <60 (59 bpm) Rhythm: sinus [place]: normal QRS: normal Intervals: normal ST/T: normal Interpreted by: signing physician (Dr. Murray) Xray Xray : Xray: Ribs L (no obvious fracture, no acute cardiopulmonary findings (Dr. Murray)) CT CT : CT: Head no contrast (no acute intracranial findings, cortical atrophy) [employer]TIC PROGRAMMER August 12, 2016 15:39
[2016-08-12 16:23] LABS: BASOPHILS # (AUTO) 0.1 T/MM3 (0-0.2); BASOPHILS % (AUTO) 0.6 % (0-2); EOSINOPHILS # (AUTO) 0.4 T/MM3 (0-0.5); EOSINOPHILS % (AUTO) 3.9 % (0-4); HCT - HEMATOCRIT 34.2 % (36-46); HGB - HEMOGLOBIN 10.9 GM/DL (12-16); IMMATURE GRANULOCYTE # (AUTO) 0.02 T/MM3 (0.00-0.03); IMMATURE GRANULOCYTE % (AUTO) 0.2 % (0.0-0.5); LYMPHOCYTES # (AUTO) 2.8 T/MM3 (1-4.8); LYMPHOCYTES % (AUTO) 30.4 % (23-45); MEAN CORPUSCULAR HGB 28.9 UUG (26-34); MEAN CORPUSCULAR HGB CONC(MCHC 31.9 GM/DL (31-37); MEAN CORPUSCULAR VOLUME 90.7 UM3 (80-100); MEAN PLATELET VOLUME 11.6 UM3 (9.4-12.4); MONOCYTES # (AUTO) 0.5 T/MM3 (0-0.8); MONOCYTES % (AUTO) 5.8 % (0-9.0); NEUTROPHILS #(AUTO)-ABSOLUTE 5.5 T/MM3 (1.8-7.7); NEUTROPHILS % (AUTO) 59.1 % (33-66); RED BLOOD COUNT 3.77 M/MM3 (4.00-5.20); WBC - WHITE BLOOD COUNT 9.3 T/MM3 (4.5-11.0)
[2016-08-12 17:05] LABS: BLOOD, URINE NEGATIVE (NEGATIVE); COLOR,URINE YELLOW (YELLOW); LEUKOCYTE ESTERASE ,URINE NEGATIVE (NEGATIVE); NITRITE,URINE NEGATIVE (NEGATIVE); UROBILINOGEN,URINE 0.2 EU/DL (NORMAL)
[2016-08-12 17:06] LABS: ALBUMIN 4.5 G/DL (3.5-5.0); ALBUMIN/GLOBULIN RATIO 1.3 RATIO (1.1-2.2); ALKALINE PHOSPHATASE 108 U/L (38-126); ALT (SGPT) 23 U/L (9-52); ANION GAP 18 MEQ/L (5-15); AST (SGOT) 18 U/L (14-36); BUN/CREATININE RATIO 19 RATIO (6-26); CALCIUM 9.5 MG/DL (8.4-10.2); CHLORIDE 107 MEQ/L (98-107); CO2 - CARBON DIOXIDE 18 MEQ/L (22-30); CREATININE 2.5 MG/DL (0.7-1.2); GLOMERULAR FILTRATION RATE 19; GLUCOSE 228 MG/DL (65-110); POTASSIUM 5.5 MEQ/L (3.6-5); SODIUM 143 MEQ/L (134-144)
[2016-08-12] MEDS ORDERED: CALC0.253 PO (18:22)
[2016-08-12] MEDS ORDERED: INSU100V12 SQ (18:22)
[2016-08-12] MEDS ORDERED: RAMI5CAP22 PO (18:22)
[2016-08-12] MEDS ORDERED: INSU100I21 SQ (18:22)
[2016-08-12 18:24] LABS: POTASSIUM 5.2 MEQ/L (3.6-5)
[2016-08-12] MEDS ORDERED: NORMAL SALINE 500 ML IV ONE (18:45)
[2016-08-12 20:05] VITALS: BP 178/80; PULSE 66; RESP 21; TEMP 98.2; O2SAT 99
--- NOTE | 2016-08-13 08:41 | DI ---
Indication: ITS.REASON: pain over left lateral ribs 3-5 PROCEDURE: RIBS LEFT WITH AP CHEST: Encounter: Initial Comparison: None FINDINGS: Chest: The lungs are clear. There is no abnormal airspace opacity, pleural effusion or pneumothorax identified. The heart size, pulmonary vasculature and mediastinum are within normal limits. AP and oblique views of the left ribs: No displaced rib fracture is seen. IMPRESSION: No acute cardiopulmonary abnormality. .
--- NOTE | 2016-08-13 08:43 | DI ---
Indication: ITS.REASON: syncope PROCEDURE: CT HEAD W/O CONTRAST: Encounter: Initial Comparison: None Technique: Axial CT images through the head were performed without contrast. Iterative Reconstruction dose reducing technique was utilized. FINDINGS: Mild atrophy. The ventricles are of normal size, shape, and contour for the patient's age. There are scattered areas of low attenuation in the white matter which most likely represent changes from chronic microvascular ischemia. The brainstem, cerebellum, and cerebral hemispheres otherwise have a normal morphology and CT attenuation. There is no evidence of midline displacement. No hemorrhage, signs of acute territorial stroke, mass effect, mass lesions, or edema is evident. The visualized portions of the skull base, midface, and calvarium demonstrate no abnormality. Minimal sinus disease. The tympanic and mastoid cavities appear normal. IMPRESSION: No acute intracranial abnormality or hemorrhage. There is a preliminary report by [facility]. .
== END 2016-08-12 20:05 | disposition home or self-care (01) ==
LOC: ED 14:58
DX: R55 Syncope and collapse (principal); E86.0 Dehydration; E87.5 Hyperkalemia; N28.9 Disorder of kidney and ureter, unspecified; R07.81 Pleurodynia
CPT/HCPCS: 36415; 80053; 81003; 84132; 84484; 85025; 93005